=== PATIENT | female | born 1940 | race Caucasian/White ===

== ENCOUNTER 2018-09-06 09:14 | Outpatient (CLI) | payer OTHER ==
[~2018-09-06 09:14] MED LIST: ACTICAL SOFTGEL1 CAP; ASA81 MG; DIOVAN320 MG; MIRALAX12 EA
== END 2018-09-06 09:29 | disposition home or self-care (01) ==
LOC: NUCLEAR 09:14
DX: D35.1 Benign neoplasm of parathyroid gland (principal); C75.0 Malignant neoplasm of parathyroid gland
CPT/HCPCS: 78072; A9500